=== PATIENT | female | born 1940 | race Caucasian/White ===

== ENCOUNTER 2017-07-14 13:44 | Emergency (ER) | payer OTHER, BC ==
[~2017-07-14] VITALS: Ht 162.6 cm; Wt 66.6 kg
[~2017-07-14 13:44] MED LIST: AMBIEN5 MG PO; Ambien PO; DIVALPROEX SOD250 MG PO; ESKALITH300 M1 PO; FLUOXETINE HCL20 MG PO; MIRTAZAPINE15 MG PO; OXCARBAZEPINE150 MG PO; PROZAC20 MG PO; Prozac PO; RISPERIDONE0.5 MG PO; Remeron PO; ZOLPIDEM TARTRAT5 MG PO
[2017-07-14] MEDS ORDERED: LIDODERM 5% P1 PATCH TD (17:13)
[2017-07-14 17:29] VITALS: BP 140/82
== END 2017-07-14 17:30 | disposition home or self-care (01) ==
LOC: EME 13:44
DX: M54.5 Low back pain (principal); W01.0XXA Fall on same level from slipping, tripping and stumbling without subsequent striking against object, initial encounter; Y93.01 Activity, walking, marching and hiking; Y92.531 Health care provider office as the place of occurrence of the external cause; Z88.0 Allergy status to penicillin; Z88.6 Allergy status to analgesic agent
CPT/HCPCS: 72100; 72220; 99281; 99284